=== PATIENT | female | born 1970 | race African-American/Black ===

== ENCOUNTER 2017-07-05 21:50 | Emergency (ER) | payer OTHER ==
--- NOTE | 2017-07-05 22:28 | RAD ---
FOUR VIEWS OF THE RIGHT KNEE 07/05/17 INDICATION: Chronic right knee pain. COMPARISON: None. FINDINGS: There is moderate degenerative arthrosis involving the right knee. There is mild joint capsular dist ention. IMPRESSION: Moderate degenerative arthrosis of the right knee. Mild joint capsular distention. POS: [facility]
[2017-07-05] MEDS ORDERED: Ketorolac Tromethamine 60 MG/2 ML VIAL ONE (23:58)
== END 2017-07-06 00:04 | disposition home or self-care (01) ==
LOC: ERS 21:50
DX: M17.11 Unilateral primary osteoarthritis, right knee (principal); E11.9 Type 2 diabetes mellitus without complications; I10 Essential (primary) hypertension; F31.9 Bipolar disorder, unspecified; F41.9 Anxiety disorder, unspecified; F20.9 Schizophrenia, unspecified; Z79.84 Long term (current) use of oral hypoglycemic drugs; Z79.899 Other long term (current) drug therapy
CPT/HCPCS: 96372; J1885

== ENCOUNTER 2017-11-04 22:32 | Emergency (ER) | payer OTHER ==
--- NOTE | 2017-11-05 00:05 | CT ---
NONCONTRAST CT HEAD: Date: 11-04-17 History: Syncope two hours ago. Patient had previous syncopal episode of dizziness and loss of vision . When patient awakened, the patient had a headache and was vomiting. Comparison: 11-03-11 FINDINGS: There is no evidence of a hemorrhage, acute infarction, mass effect, or midline shift. Ventricular sy stem is normal in size, shape, and position. There has been no interval change when compared to the p rior exam. IMPRESSION: No acute intracranial abnormalities demonstrated. POS: [facility]
--- NOTE | 2017-11-05 00:08 | CT ---
CT CERVICAL SPINE NONCONTRAST: Date: 11-04-17 History: Trauma. Patient with syncopal episode. When patient awoke, patient had headache and was vomi ting. Technique: Contiguous axial CT images are obtained through the cervical spine from the skull base to the T1-2 level. Sagittal and coronal reformatted images are provided. FINDINGS: There is a midline defect in the posterior arch of C1 likely developmental in origin. There is no kristopher dence of a fracture or subluxation involving the cervical spine. There is no significant bony encroac hment on the neural foramina at any level. There is posterior osteophyte formation present at the C5- 6 level resulting in mild effacement of the ventral subarachnoid space. Prevertebral soft tissues are within normal limits. There is calcification of the anterior and longitudinal ligament at the C4-5 and C5-6 levels. IMPRESSION: 1. No fracture or subluxation involving the cervical spine. 2. Mild degenerative change in the cervical spine. 3. Straightening of the normal cervical lordotic curvature which may be related to muscle spasm or po sitioning. POS: [facility]
[2017-11-05 00:13] LABS: #Eosinphils 0.1 thou/uL (0.0-0.7); #Monocytes 0.5 thou/uL (0.11-0.59); #Neutrophils 5.9 thou/uL (1.40-6.50); %Eosinophils 0.9 % (0.0-10.0); %Monocytes 5.7 % (0.0-10.0); %Neutrophils 69.3 % (42.0-75.0); Hemoglobin 11.5 g/dL (12.0-16.0); Mean Corpuscular HGB CONC 31.6 g/dL (32.0-36.0); Mean Corpuscular Volume 91.9 fl (81.0-99.0); Platelet Count 389 thou/uL (130-400); RBC Distribution Width 13.6 % (11.5-14.5); Red Blood Cell (RBC) Count 3.96 mill/uL (4.20-5.40); White Blood Cell (WBC) Count 8.4 thou/uL (4.8-10.8)
[2017-11-05] MEDS ORDERED: Metoclopramide HCl 10 MG/2 ML VIAL ONE (00:20)
[2017-11-05] MEDS ORDERED: diphenhydrAMINE 50 MG/ML VIAL ONE (00:20)
[2017-11-05 00:28] LABS: ALT (SGPT) 11 U/L (8-55); AST (SGOT) 17 U/L (5-34); Albumin 3.8 g/dL (3.5-5.0); Alkaline Phosphatase 92 U/L (40-150); Anion Gap 12 mmol/L (10-20); BUN (Urea Nitrogen) 13 mg/dL (7.0-18.7); Bilirubin, Total 0.3 mg/dL (0.2-1.2); Calc. Creatinine Clearance 0 mL/min (70-130); Calcium 9.5 mg/dL (7.8-10.44); Carbon Dioxide 26 mmol/L (22-29); Chloride 105 mmol/L (98-107); Estimated GFR-MDRD 77; Globulin 3.5 g/dL (2.4-3.5); Glucose 125 mg/dL (70-105); Potassium 4.1 mmol/L (3.5-5.1); Protein, Total 7.3 g/dL (6.0-8.3); Sodium 139 mmol/L (136-145)
[2017-11-05] MEDS ORDERED: Acetaminophen 500 MG TAB ONE (01:01)
--- NOTE | 2017-11-10 19:03 | EKG ---
Test Reason : HTN Blood Pressure : / mmHG Vent. Rate : 078 BPM Atrial Rate : 078 BPM P-R Int : 144 ms QRS Dur : 078 ms QT Int : 406 ms P-R-T Axes : 042 000 021 degrees QTc Int : 462 ms Normal sinus rhythm with sinus arrhythmia Minimal voltage criteria for LVH, may be normal variant Septal infarct , age undetermined Abnormal ECG Confirmed by LESLEY MAHER, NANCY ([id number]), news editor DWAYNE PATEL ([id number]) on 11/10/2017 7:02:19 PM Referred By: Confirmed By:NANCY SUTTON MD
== END 2017-11-05 01:25 | disposition home or self-care (01) ==
LOC: ERS 22:32
DX: R55 Syncope and collapse (principal); R51 Headache; E11.9 Type 2 diabetes mellitus without complications; J45.909 Unspecified asthma, uncomplicated; F41.9 Anxiety disorder, unspecified; F31.9 Bipolar disorder, unspecified; F20.9 Schizophrenia, unspecified; Z79.84 Long term (current) use of oral hypoglycemic drugs; Z79.899 Other long term (current) drug therapy
CPT/HCPCS: 36415; 70450; 72125; 80053; 85025; 85652; 86140; 93005; J1200; J2765

== ENCOUNTER 2018-08-25 07:22 | Emergency (ER) | payer OTHER ==
[2018-08-25] MEDS ORDERED: Metoclopramide HCl 10 MG/2 ML VIAL ONE (07:42)
[2018-08-25] MEDS ORDERED: diphenhydrAMINE 50 MG/ML VIAL ONE (07:42)
[2018-08-25 08:04] LABS: #Basophils 0.1 thou/uL (0.0-0.2); #Eosinphils 0.1 thou/uL (0.0-0.7); #Lymphocytes 3.5 thou/uL (1.20-3.40); #Monocytes 0.6 thou/uL (0.11-0.59); #Neutrophils 3.6 thou/uL (1.40-6.50); %Basophils 0.8 % (0.0-1.0); %Lymphocytes 44.5 % (21.0-51.0); %Neutrophils 46.7 % (42.0-75.0); Mean Corpuscular HGB CONC 32.4 g/dL (32.0-36.0); Mean Corpuscular Hemoglobin 28.9 pg (27.0-31.0); Mean Corpuscular Volume 89.3 fL (78.0-98.0); Mean Platelet Volume 7.3 fL (7.4-10.4); Platelet Count 381 thou/uL (130-400); RBC Distribution Width 13.5 % (11.5-14.5); Red Blood Cell (RBC) Count 4.17 mill/uL (4.20-5.40); White Blood Cell (WBC) Count 7.8 thou/uL (4.8-10.8)
[2018-08-25 08:27] LABS: ALT (SGPT) 9 U/L (8-55); AST (SGOT) 14 U/L (5-34); Alkaline Phosphatase 91 U/L (40-150); Anion Gap 12 mmol/L (10-20); BUN (Urea Nitrogen) 12 mg/dL (7.0-18.7); Bilirubin, Total 0.6 mg/dL (0.2-1.2); Calc. Creatinine Clearance 0 mL/min (70-130); Calcium 9.9 mg/dL (7.8-10.44); Carbon Dioxide 27 mmol/L (22-29); Chloride 104 mmol/L (98-107); Estimated GFR-MDRD 82; Globulin 3.9 g/dL (2.4-3.5); Glucose 132 mg/dL (70-105); Lipase 23 U/L (8-78); Potassium 3.9 mmol/L (3.5-5.1); Protein, Total 7.9 g/dL (6.0-8.3); Sodium 139 mmol/L (136-145)
--- NOTE | 2018-08-25 08:50 | CT ---
CT BRAIN WITHOUT CONTRAST: Date: 08/25/18 HISTORY: Headache. FINDINGS: Comparison made with exam of 11/04/17. No evidence of infarct, hemorrhage, midline shift, or abnormal extra-axial fluid collections are seen . The ventricular size is normal and the basilar cisterns are patent. The bony calvarium is intact. T he visualized paranasal sinuses and mastoid air cells are well aerated. IMPRESSION: No CT evidence of acute intracranial process. POS: [facility]
[2018-08-25] MEDS ORDERED: Meclizine HCl 25 MG TAB ONE (09:07)
== END 2018-08-25 10:26 | disposition home or self-care (01) ==
LOC: ERS 07:22
DX: R51 Headache (principal); I10 Essential (primary) hypertension; E11.9 Type 2 diabetes mellitus without complications; J45.909 Unspecified asthma, uncomplicated; F41.9 Anxiety disorder, unspecified; F31.9 Bipolar disorder, unspecified; F20.9 Schizophrenia, unspecified; Z79.84 Long term (current) use of oral hypoglycemic drugs; Z79.899 Other long term (current) drug therapy
CPT/HCPCS: 36415; 70450; 80053; 83690; 84484; 85025; 93005; 96365; 96366; J1200; J2765

== ENCOUNTER 2018-09-21 20:28 | Emergency (ER) | payer OTHER ==
--- NOTE | 2018-09-21 21:18 | RAD ---
AP PELVIS RADIOGRAPH 09/21/18 HISTORY: Trauma, fall. FINDINGS: There is no evidence of a fracture or dislocation. No other osseous abnormality is present. IMPRESSION: No acute osseous abnormality is identified. POS: [facility]
--- NOTE | 2018-09-21 21:21 | RAD ---
THREE VIEWS LUMBAR SPINE 09/21/18 HISTORY: Trauma, fall. FINDINGS: There are five nonribbearing lumbar type vertebral bodies. The vertebral body heights are within normal limits. There is retrolisthesis of L5 on S1. Scattered o steophytes are seen in the lower lumbar spine. There are also osteophytes seen in the lower thoracic spine. No fracture is seen. Surgical clips overlie the right upper quadrant. Phleboliths overlie the pelvis. There is a calcifica tion is seen overlying the right lower quadrant which is difficult to further localize. However, this does not overlie the course of the ureter. IMPRESSION: 1. Degenerative changes in the lumbar spine without evidence of a fracture. 2. Retrolisthesis of L5 on S1. POS: [facility]
[2018-09-21] MEDS ORDERED: Ketorolac Tromethamine 60 MG/2 ML VIAL ONE (21:31)
== END 2018-09-21 22:15 | disposition home or self-care (01) ==
LOC: ERS 20:28
DX: M54.5 Low back pain (principal); F31.9 Bipolar disorder, unspecified; F20.9 Schizophrenia, unspecified; E11.9 Type 2 diabetes mellitus without complications; I10 Essential (primary) hypertension; F41.9 Anxiety disorder, unspecified; J45.909 Unspecified asthma, uncomplicated; Z79.899 Other long term (current) drug therapy; Z79.84 Long term (current) use of oral hypoglycemic drugs; W01.0XXA Fall on same level from slipping, tripping and stumbling without subsequent striking against object, initial encounter
CPT/HCPCS: 72100; 72170; 96372; J1885

== ENCOUNTER 2018-09-22 13:31 | Emergency (ER) | payer OTHER ==
[2018-09-22 14:17] LABS: #Basophils 0.1 thou/uL (0.0-0.2); #Eosinphils 0.1 thou/uL (0.0-0.7); #Lymphocytes 4.1 thou/uL (1.20-3.40); #Monocytes 0.8 thou/uL (0.11-0.59); #Neutrophils 6.6 thou/uL (1.40-6.50); %Basophils 0.9 % (0.0-1.0); %Eosinophils 0.7 % (0.0-10.0); %Lymphocytes 35.5 % (21.0-51.0); %Monocytes 6.4 % (0.0-10.0); %Neutrophils 56.5 % (42.0-75.0); Hemoglobin 13.1 g/dL (12.0-16.0); Mean Corpuscular HGB CONC 31.8 g/dL (32.0-36.0); Mean Corpuscular Hemoglobin 28.5 pg (27.0-31.0); Mean Corpuscular Volume 89.6 fL (78.0-98.0); Mean Platelet Volume 7.4 fL (7.4-10.4); Platelet Count 444 thou/uL (130-400); RBC Distribution Width 13.7 % (11.5-14.5); Red Blood Cell (RBC) Count 4.59 mill/uL (4.20-5.40); White Blood Cell (WBC) Count 11.6 thou/uL (4.8-10.8)
[2018-09-22 14:38] LABS: ALT (SGPT) 14 U/L (8-55); AST (SGOT) 18 U/L (5-34); Albumin 4.4 g/dL (3.5-5.0); Alkaline Phosphatase 96 U/L (40-150); Anion Gap 19 mmol/L (10-20); BUN (Urea Nitrogen) 20 mg/dL (7.0-18.7); Bilirubin, Total 0.5 mg/dL (0.2-1.2); Calc. Creatinine Clearance 0 mL/min (70-130); Carbon Dioxide 18 mmol/L (22-29); Chloride 105 mmol/L (98-107); Estimated GFR-MDRD 67; Glucose 158 mg/dL (70-105); Potassium 3.5 mmol/L (3.5-5.1); Protein, Total 8.4 g/dL (6.0-8.3); Sodium 138 mmol/L (136-145)
[2018-09-22] MEDS ORDERED: Ondansetron ODT 4 MG TAB ONE (14:38)
--- NOTE | 2018-09-22 15:04 | RAD ---
PORTABLE CHEST: Date: 09/22/18 PROVIDED CLINICAL HISTORY: Cough. FINDINGS: Comparison with 08/23/15. Evaluation is limited by patient body habitus. The cardiac silhouette appears enlarged. The lungs are hypoinflated, with accentuation of pulmonary bronchovascular markings. No lobar consolidation, large effusion, or pneumothorax evident. IMPRESSION: Limited exam. POS: [facility]
--- NOTE | 2018-09-22 15:11 | CT ---
CT BRAIN: Date: 09/22/18 PROVIDED CLINICAL HISTORY: Headache. FINDINGS: Comparison with 08/25/18. The ventricular system appears normal in size and morphology. There is no evidence for intracranial h emorrhage or mass effect. The extracranial soft tissues and osseous structures demonstrate an unremar kable CT appearance. IMPRESSION: No evidence for intracranial hemorrhage or mass effect. POS: [facility]
== END 2018-09-22 15:49 | disposition home or self-care (01) ==
LOC: ERS 13:31
DX: I10 Essential (primary) hypertension (principal); E11.9 Type 2 diabetes mellitus without complications; J45.909 Unspecified asthma, uncomplicated; F41.9 Anxiety disorder, unspecified; F31.9 Bipolar disorder, unspecified; F20.9 Schizophrenia, unspecified; Z79.899 Other long term (current) drug therapy; Z79.84 Long term (current) use of oral hypoglycemic drugs
CPT/HCPCS: 36415; 70450; 71045; 80053; 84484; 85025; 93005; Q0162

== ENCOUNTER 2019-02-06 06:03 | Observation (INO) | payer OTHER ==
[2019-02-06 06:44] LABS: #Basophils 0.1 thou/uL (0.0-0.2); #Eosinphils 0.2 thou/uL (0.0-0.7); #Lymphocytes 3.6 thou/uL (1.20-3.40); #Monocytes 0.6 thou/uL (0.11-0.59); #Neutrophils 3.1 thou/uL (1.40-6.50); %Basophils 1.1 % (0.0-1.0); %Eosinophils 2.8 % (0.0-10.0); %Lymphocytes 47.8 % (21.0-51.0); %Monocytes 7.3 % (0.0-10.0); Hemoglobin 12.1 g/dL (12.0-16.0); Mean Corpuscular HGB CONC 32.9 g/dL (32.0-36.0); Mean Corpuscular Hemoglobin 29.7 pg (27.0-31.0); Mean Corpuscular Volume 90.3 fL (78.0-98.0); Mean Platelet Volume 7.3 fL (7.4-10.4); Platelet Count 377 thou/uL (130-400); RBC Distribution Width 13.2 % (11.5-14.5); Red Blood Cell (RBC) Count 4.06 mill/uL (4.20-5.40); White Blood Cell (WBC) Count 7.5 thou/uL (4.8-10.8)
[2019-02-06 07:06] LABS: ALT (SGPT) 15 U/L (8-55); AST (SGOT) 13 U/L (5-34); Albumin 4.1 g/dL (3.5-5.0); Alkaline Phosphatase 115 U/L (40-150); Anion Gap 15 mmol/L (10-20); BUN (Urea Nitrogen) 13 mg/dL (7.0-18.7); Bilirubin, Total 0.4 mg/dL (0.2-1.2); Calc. Creatinine Clearance 0 mL/min (70-130); Calcium 9.9 mg/dL (7.8-10.44); Carbon Dioxide 24 mmol/L (22-29); Chloride 102 mmol/L (98-107); Estimated GFR-MDRD 66; Globulin 3.7 g/dL (2.4-3.5); Glucose 154 mg/dL (70-105); Lipase 43 U/L (8-78); Potassium 3.9 mmol/L (3.5-5.1); Protein, Total 7.8 g/dL (6.0-8.3); Sodium 137 mmol/L (136-145)
[2019-02-06] MEDS ORDERED: Nitroglycerin 2% Ointment 1 INCH/1 GM Packet ONE (07:29)
[2019-02-06] MEDS ORDERED: Aspirin Chewable 81 MG TAB ONE (07:30)
--- NOTE | 2019-02-06 07:50 | RAD ---
Exam: Chest one view HISTORY:Chest pain. Comparison: 09/22/2018 FINDINGS: Cardiac silhouette: Normal Pulmonary vessels: Normal Costophrenic angles: Clear LUNGS: No masses or consolidation. Pneumothorax: None Osseous abnormalities: None IMPRESSION: No acute cardiopulmonary process.
[2019-02-06 10:04] LABS: Troponin I 0.011 ng/mL (< 0.028)
--- NOTE | 2019-02-06 10:41 | PDOC.FPRHP ---
- Allergies/Adverse Reactions Allergies Allergy/AdvReac Type Severity Reaction Status Date / Time No Known Drug Allergies Allergy Verified 04/23/13 18:49 - Home Medications Medication Instructions Recorded Confirmed Type No Known 04/23/13 04/23/13 History - History PMHx: PSHx: FHx: Social: - Vital signs BP: 134/88, Pulse: 80, Resp: 18 (Non-Labored), Temp: 97.8 (Oral), Pain: 7, O2 sat: 94 on Room Air, Time: 02/06/2019 06:07. weight 129kg FMR H&P: Results - Labs Result Diagrams: 02/06/19 06:32 02/06/19 06:32 Lab results: WBC 7.5 thou/uL (4.8-10.8) 02/06/19 06:32 Hgb 12.1 g/dL (12.0-16.0) 02/06/19 06:32 Hct 36.7 % (36.0-47.0) 02/06/19 06:32 MCV 90.3 fL (78.0-98.0) 02/06/19 06:32 Plt Count 377 thou/uL (130-400) 02/06/19 06:32 Neutrophils % 41.0 % (42.0-75.0) L 02/06/19 06:32 Sodium 137 mmol/L (136-145) 02/06/19 06:32 Potassium 3.9 mmol/L (3.5-5.1) 02/06/19 06:32 Chloride 102 mmol/L (98-107) 02/06/19 06:32 Carbon Dioxide 24 mmol/L (22-29) 02/06/19 06:32 BUN 13 mg/dL (7.0-18.7) 02/06/19 06:32 Creatinine 1.07 mg/dL (0.6-1.1) 02/06/19 06:32 Glucose 154 mg/dL (70-105) H 02/06/19 06:32 Calcium 9.9 mg/dL (7.8-10.44) 02/06/19 06:32 Total Bilirubin 0.4 mg/dL (0.2-1.2) 02/06/19 06:32 AST 13 U/L (5-34) 02/06/19 06:32 ALT 15 U/L (8-55) 02/06/19 06:32 Alkaline Phosphatase 115 U/L (40-150) 02/06/19 06:32 Serum Total Protein 7.8 g/dL (6.0-8.3) 02/06/19 06:32 Albumin 4.1 g/dL (3.5-5.0) 02/06/19 06:32 Lipase 43 U/L (8-78) 02/06/19 06:32 FMR H&P: Upper Level - Pertinent history 49 yo AAF with PMHx HTN, T2DM and HLD who presents with cc of L breast pain since last night. She describes it as a sharp pain in the middle of her breast. No radiation, diaphoresis, n/v. She states it happened at 1 am then recurred at 5 am. She describes it as sharp and worse with coughing. She reports she has had a nonproductive cough for a few weeks now. Denies fever, chills, sputum production. The pain is improved with pressing on her breast. Denies any skin changes. Had normal mammogram 2 years ago per her recollection. - Pertinent findings VSS CXR negative EKG NSR Gen: awake, alert, oriented HEENT: NCAT, MMM CV: RRR, no murmur RESP: CTAB ABD: soft, NTND EXT: no edema, pulses 1+ throughout BREAST: L breast without skin changes, TTP, palpable masses, pain slightly improved with pressure - Plan Date/Time: 02/06/19 1040 49 yo AAF with atypical chest pain (predominately breast pain) 1. Atypical chest pain - HEART score 3 - Trops neg x2 - Will await final trop and recommend OP stress test if negative 2. DM - Continue home meds and f/u with Dr. Walsh OP 3. HTN - WNL at this time - Continue home meds Please see Dr. Murphy's note for remainder of A/P I, Jennifer Ayala MD, PGY-3, have evaluated this patient and agree with findings/ plan as outlined by international project manager resident. Pertinent changes/additions are listed here.
[2019-02-06 13:19] VITALS: BP 114/62; TEMP 97.9
[2019-02-06 13:19] LABS: Troponin I Less than 0.010 ng/mL (< 0.028)
[2019-02-06 13:21] VITALS: BMI 42.5
[2019-02-06] MEDS ORDERED: Acetaminophen 325 MG TAB PO PRN (13:21)
[2019-02-06] MEDS ORDERED: HumaLOG 300 UNITS/3 ML VIAL SC PRN (13:21)
[2019-02-06] MEDS ORDERED: Dextrose 5% in Water 1,000 ML IV PRN (13:21)
[2019-02-06] MEDS ORDERED: Dextrose 50% Abboject 50 ML SYRINGE SLOW IVP PRN (13:21)
[2019-02-06] MEDS ORDERED: Ondansetron PF 4 MG/2 ML Vial IVP PRN (13:24)
[2019-02-06] MEDS ORDERED: Ondansetron ODT 4 MG TAB PO PRN (13:24)
[2019-02-06 13:53] LABS: Magnesium 2.7 mg/dL (1.6-2.6); Phosphorus 4.2 mg/dL (2.3-4.7)
--- NOTE | 2019-02-07 08:18 | SS ---
DATE OF ADMISSION: 02/06/2019 DATE OF DISCHARGE: 02/06/2019 CHIEF COMPLAINT: Chest pain. HISTORY OF PRESENT ILLNESS: This is a 49-year-old female with history of diabetes, obesity, and hypertension, who presented to the emergency department for evaluation of chest pain. The patient reports that her pain woke her up in the middle of the night. It is located on the left side of her chest, within her breast just deep of the skin. The pain is of sharp quality with no radiation and is at times palliated by palpation. The patient states that she has had this breast pain in past. Her last MRI was 2 years ago and she has never had an abnormal MRI. Family history was significant for breast cancer. The patient had no related symptoms. No shortness of breath. No diaphoresis. PAST MEDICAL HISTORY: Diabetes, hypertension, obesity. PAST SURGICAL HISTORY: Tubal ligation, cholecystectomy. FAMILY HISTORY: Breast cancer, brain cancer. SOCIAL HISTORY: Occasional social alcohol. Denies tobacco. Denies drugs. ADMISSION MEDICATIONS: 1. Ventolin HFA two puffs every 4 hours as needed for shortness of breath. 2. Amitriptyline one tablet p.o. each night, 25 mg. 3. Metformin 500 mg one tablet p.o. b.i.d. 4. Flovent HFA two puffs b.i.d. 5. Vitamin D 50,000 units one tablet q.weekly. 6. Losartan 50 mg one tablet p.o. daily. 7. Hydrochlorothiazide 12.5 mg one capsule p.o. daily. 8. Ipratropium/albuterol nebulized, one nebule q4-6 hours p.r.n. for wheezing and shortness of breath. 9. Gabapentin 300 mg one capsule p.o. b.i.d. REVIEW OF SYSTEMS: GENERAL: No fevers. No chills. HEENT: No visual disturbance. No eye pain. No ear pain. PULMONARY: No shortness of breath. No cough. CARDIOLOGY: No edema. No palpitations. Chest pain per HPI. GASTROINTESTINAL : No nausea. No vomiting. No abdominal pain. : No pain on urination. No hematuria. NEUROLOGIC: No syncope. No seizures. SKIN: No rashes. No lesions. PSYCH: No anxiety. No depression. PHYSICAL EXAMINATION: GENERAL: No acute distress. Obese. HEENT: EOMI. No conjunctivitis. NECK: Trachea midline. CARDIAC: Regular rate and rhythm. No murmurs. PULMONARY: Clear to auscultation bilaterally. No wheezing. No distress. GI: No tenderness to palpation. Nondistended. SKIN: No rashes. No lesions. NEUROLOGIC: Alert and oriented x3. No focal deficits. BREAST: No erythema. No edema. No peau d'orange. No masses palpated. Pain was relieved with palpation on exam. HOSPITAL COURSE: The patient was brought into hospital for observation. Considering the patient's risk factors of diabetes, obesity, and hypertension, the patient was monitored for ACS rule out. Troponins were negative x3, with consideration of the atypical nature of her pain, it was deemed likely that the pain was secondary to musculoskeletal reasons versus soft tissue pain related to breasts, so the patient was deemed stable for discharge with plans for outpatient stress test and mammography. This was discussed with the patient who verbalized understanding and intentions for following up in clinic in the next 1 to 2 days for said referral and expressed her intent to get a mammogram. DISCHARGE DIAGNOSIS: Atypical chest pain, likely secondary to musculoskeletal reasons. DISCHARGE MEDICATIONS: Same as home medications. DISPOSITION: Stable. DISCHARGE INSTRUCTIONS: 1. Location: Home. 2. Diet: Healthy heart, consisting carb, diabetic diet. 3. Activity: No restrictions. FOLLOWUP: Follow up in clinic in 1 to 2 days. Recommend outpatient stress test and referral for mammography. This patient was also seen and evaluated by Dr. Jennifer Ayala and Dr. Jose Luis Winn as attending. Job ID: [id number] MTDD
[2019-02-07] MEDS ORDERED: Enoxaparin Sodium 40 MG/0.4 ML SYRINGE SC SCH (09:00)
--- NOTE | 2019-02-08 17:04 | EKG ---
Test Reason : CP Blood Pressure : / mmHG Vent. Rate : 061 BPM Atrial Rate : 061 BPM P-R Int : 128 ms QRS Dur : 080 ms QT Int : 430 ms P-R-T Axes : 027 -07 015 degrees QTc Int : 432 ms Normal sinus rhythm Moderate voltage criteria for LVH, may be normal variant Borderline ECG Confirmed by GEORGI SIDDIQUI DO ([id number]), pictures editor TIFFANY MONACO ([id number]) on 02/08/2019 5:04:04 PM Referred By: Confirmed By:GEORGI SIDDIQUI DO
== END 2019-02-06 15:46 | disposition home or self-care (01) ==
LOC: ERS 06:03 → ERHOLD 07:49 → 2SW 13:08
PROVIDERS: ADMIT Family Medicine; ATTEND Family Medicine
DX: R07.89 Other chest pain (principal); E11.9 Type 2 diabetes mellitus without complications; I10 Essential (primary) hypertension; E66.9 Obesity, unspecified; Z68.41 Body mass index [BMI] 40.0-44.9, adult; Z79.84 Long term (current) use of oral hypoglycemic drugs; Z79.899 Other long term (current) drug therapy
CPT/HCPCS: 36415; 36416; 71045; 80053; 83690; 83735; 84100; 84443; 84484; 85025; 93005; G0378

== ENCOUNTER 2019-07-05 23:12 | Emergency (ER) | payer OTHER | END 2019-07-05 23:35 | disposition home or self-care (01) | LOC: ERS 23:12 | DX: M54.6 Pain in thoracic spine (principal); J45.909 Unspecified asthma, uncomplicated; I10 Essential (primary) hypertension; R73.03 Prediabetes; F41.9 Anxiety disorder, unspecified; F31.9 Bipolar disorder, unspecified; F20.9 Schizophrenia, unspecified; Z79.899 Other long term (current) drug therapy; Z79.84 Long term (current) use of oral hypoglycemic drugs | CPT/HCPCS: 99283 ==

== ENCOUNTER 2019-10-04 09:37 | Emergency (ER) | payer OTHER ==
--- NOTE | 2019-10-04 10:34 | RAD ---
RADIOGRAPH CHEST 2 VIEWS: DATE: 10/04/2019 HISTORY: 49-year-old female with cough FINDINGS: There is no airspace density, pulmonary edema, pleural effusion, pneumothorax, or cardiomegaly. IMPRESSION: No acute cardiopulmonary findings.
== END 2019-10-04 10:53 | disposition home or self-care (01) ==
LOC: ERS 09:37
DX: J45.901 Unspecified asthma with (acute) exacerbation (principal); J20.9 Acute bronchitis, unspecified; I10 Essential (primary) hypertension; F41.9 Anxiety disorder, unspecified; F31.9 Bipolar disorder, unspecified; F20.9 Schizophrenia, unspecified
CPT/HCPCS: 71046

== ENCOUNTER 2019-10-21 01:49 | Emergency (ER) | payer OTHER ==
[2019-10-21] MEDS ORDERED: Mag-Al 1200 mg/1200 mg/30 ML UDCUP ONE (02:26)
[2019-10-21] MEDS ORDERED: Lidocaine Viscous Sol 2% 15 ml UD Cup ONE (02:26)
--- NOTE | 2019-10-21 09:13 | RAD ---
TWO VIEWS NECK SOFT TISSUES: HISTORY: Choked on a rib 2 days ago. The patient still feels like something is stuck in her throat. FINDINGS: Two views of the neck soft tissues show no evidence of prevertebral soft tissue swelling. Calcificat ions are seen in the prevertebral region, but these may represent thyroid cartilage calcifications. Epiglottis demonstrates normal thickness. Moderate degenerative changes are seen in the cervical spi ne. IMPRESSION: Calcifications in the prevertebral soft tissues may represent thyroid calcifications. Retained bone within the airway of esophagus is also a possibility. POS: [facility]
== END 2019-10-21 03:07 | disposition home or self-care (01) ==
LOC: ERS 01:49
DX: K20.9 Esophagitis, unspecified (principal); R73.03 Prediabetes; I10 Essential (primary) hypertension; J45.909 Unspecified asthma, uncomplicated; F41.9 Anxiety disorder, unspecified; F31.9 Bipolar disorder, unspecified; Z79.899 Other long term (current) drug therapy
CPT/HCPCS: 70360

== ENCOUNTER 2020-07-06 23:12 | Emergency (ER) | payer OTHER ==
[2020-07-06 23:41] LABS: #Basophils 0.1 thou/uL (0.0-0.2); #Eosinphils 0.1 thou/uL (0.0-0.7); #Lymphocytes 4.5 thou/uL (1.20-3.40); #Monocytes 0.8 thou/uL (0.11-0.59); #Neutrophils 5.2 thou/uL (1.40-6.50); %Basophils 0.6 % (0.0-1.0); %Eosinophils 0.9 % (0.0-10.0); %Lymphocytes 42.5 % (21.0-51.0); %Monocytes 7.9 % (0.0-10.0); %Neutrophils 48.2 % (42.0-75.0); Hemoglobin 13.6 g/dL (12.0-16.0); Mean Corpuscular HGB CONC 33.3 g/dL (32.0-36.0); Mean Corpuscular Hemoglobin 29.9 pg (27.0-31.0); Mean Corpuscular Volume 89.9 fL (78.0-98.0); Mean Platelet Volume 7.1 fL (7.4-10.4); Platelet Count 449 thou/uL (130-400); RBC Distribution Width 13.9 % (11.5-14.5); Red Blood Cell (RBC) Count 4.55 mill/uL (4.20-5.40); White Blood Cell (WBC) Count 10.7 thou/uL (4.8-10.8)
[2020-07-06] MEDS ORDERED: Mag-Al 1200 mg/1200 mg/30 ML UDCUP ONE ×2 (23:44→23:45)
[2020-07-06] MEDS ORDERED: Lidocaine Viscous Sol 2% 15 ml UD Cup ONE ×2 (23:44→23:45)
[2020-07-06] MEDS ORDERED: Aspirin Chewable 81 MG TAB ONE (23:45)
[2020-07-07 00:04] LABS: ALT (SGPT) 12 U/L (8-55); AST (SGOT) 15 U/L (5-34); Albumin 4.3 g/dL (3.5-5.0); Alkaline Phosphatase 141 U/L (40-110); Anion Gap 16 mmol/L (10-20); BUN (Urea Nitrogen) 17 mg/dL (7.0-18.7); Bilirubin, Total 0.4 mg/dL (0.2-1.2); CK (CPK) 133 U/L (29-168); Calc. Creatinine Clearance 0 mL/min (70-130); Calcium 10.4 mg/dL (7.8-10.44); Carbon Dioxide 27 mmol/L (22-29); Chloride 102 mmol/L (98-107); Estimated GFR-MDRD 61; Globulin 4.3 g/dL (2.4-3.5); Glucose 112 mg/dL (70-105); Lipase 77 U/L (8-78); Protein, Total 8.6 g/dL (6.0-8.3); Sodium 141 mmol/L (136-145)
--- NOTE | 2020-07-07 00:05 | RAD ---
EXAM: CHEST ONE VIEW HISTORY: Chest pain. COMPARISON: 02/06/2019 FINDINGS: Cardiac silhouette is magnified by projection but stable in size. The pulmonary vasculature is within normal limits. The lungs are clear. The osseous structures are intact. IMPRESSION: No acute cardiopulmonary process.
== END 2020-07-07 00:31 | disposition home or self-care (01) ==
LOC: ERS 23:12
DX: R07.89 Other chest pain (principal); I10 Essential (primary) hypertension; J45.909 Unspecified asthma, uncomplicated; F31.9 Bipolar disorder, unspecified; F41.9 Anxiety disorder, unspecified; F20.9 Schizophrenia, unspecified; E66.9 Obesity, unspecified; E11.9 Type 2 diabetes mellitus without complications; Z79.899 Other long term (current) drug therapy; Z79.84 Long term (current) use of oral hypoglycemic drugs
CPT/HCPCS: 71045; 80053; 82550; 83690; 84484; 85025; 93005

== ENCOUNTER 2020-10-22 07:27 | Emergency (ER) | payer OTHER | END 2020-10-22 08:10 | disposition home or self-care (01) | LOC: ERS 07:27 | DX: K04.7 Periapical abscess without sinus (principal); R73.03 Prediabetes; I10 Essential (primary) hypertension; J45.909 Unspecified asthma, uncomplicated; Z79.84 Long term (current) use of oral hypoglycemic drugs; Z79.899 Other long term (current) drug therapy | CPT/HCPCS: 99283 ==

== ENCOUNTER 2021-02-16 11:06 | Emergency (ER) | payer OTHER ==
[2021-02-16] MEDS ORDERED: Ibuprofen 800 MG TAB ONE (11:44)
== END 2021-02-16 13:26 | disposition home or self-care (01) ==
LOC: ERS 11:06
DX: S33.5XXA Sprain of ligaments of lumbar spine, initial encounter (principal); S80.01XA Contusion of right knee, initial encounter; I10 Essential (primary) hypertension; J45.909 Unspecified asthma, uncomplicated; R73.03 Prediabetes; Z79.899 Other long term (current) drug therapy; Z79.84 Long term (current) use of oral hypoglycemic drugs; W01.0XXA Fall on same level from slipping, tripping and stumbling without subsequent striking against object, initial encounter
CPT/HCPCS: 72100; 72125

== ENCOUNTER 2021-04-28 08:35 | Outpatient (CLI) | payer OTHER | END 2021-04-28 08:36 | disposition home or self-care (01) | LOC: BICMAMMO 08:35 | PROVIDERS: ATTEND Student in an Organized Health Care Education/Training Program | DX: Z12.31 Encounter for screening mammogram for malignant neoplasm of breast (principal); Z80.3 Family history of malignant neoplasm of breast | CPT/HCPCS: 77067 ==

== ENCOUNTER 2021-05-27 20:15 | Emergency (ER) | payer OTHER ==
[2021-05-28] MEDS ORDERED: Meclizine HCl 25 MG TAB ONE (00:01)
[2021-05-28 00:17] LABS: #Basophils 0.1 thou/uL (0.0-0.2); #Eosinphils 0.2 thou/uL (0.0-0.7); #Lymphocytes 4.2 thou/uL (1.20-3.40); #Neutrophils 6.4 thou/uL (1.40-6.50); %Basophils 0.9 % (0.0-1.0); %Eosinophils 1.7 % (0.0-10.0); %Lymphocytes 35.3 % (21.0-51.0); %Monocytes 8.1 % (0.0-10.0); %Neutrophils 54.1 % (42.0-75.0); Hemoglobin 13.5 g/dL (12.0-16.0); Mean Corpuscular HGB CONC 32.7 g/dL (32.0-36.0); Mean Corpuscular Hemoglobin 30.5 pg (27.0-31.0); Mean Corpuscular Volume 93.3 fL (78.0-98.0); Mean Platelet Volume 7.4 fL (7.4-10.4); Platelet Count 415 thou/uL (130-400); RBC Distribution Width 13.3 % (11.5-14.5); Red Blood Cell (RBC) Count 4.41 mill/uL (4.20-5.40); White Blood Cell (WBC) Count 11.9 thou/uL (4.8-10.8)
[2021-05-28 00:37] LABS: ALT (SGPT) 12 U/L (8-55); AST (SGOT) 15 U/L (5-34); Albumin 3.9 g/dL (3.5-5.0); Alkaline Phosphatase 116 U/L (40-110); Anion Gap 12 mmol/L (10-20); BUN (Urea Nitrogen) 14 mg/dL (7.0-18.7); Bilirubin, Total 0.4 mg/dL (0.2-1.2); Calc. Creatinine Clearance 0 mL/min (70-130); Carbon Dioxide 27 mmol/L (22-29); Chloride 106 mmol/L (98-107); Globulin 4.1 g/dL (2.4-3.5); Potassium 3.8 mmol/L (3.5-5.1); Sodium 141 mmol/L (136-145)
[2021-05-28 00:54] LABS: Glucose 120 mg/dL (70-105)
== END 2021-05-28 01:38 | disposition home or self-care (01) ==
LOC: ERS 20:15
DX: R55 Syncope and collapse (principal); R42 Dizziness and giddiness; I10 Essential (primary) hypertension; J45.909 Unspecified asthma, uncomplicated; R73.03 Prediabetes; Z79.84 Long term (current) use of oral hypoglycemic drugs; Z79.899 Other long term (current) drug therapy
CPT/HCPCS: 36415; 71045; 80053; 85025; 93005

== ENCOUNTER 2022-05-20 12:19 | Emergency (ER) | payer OTHER ==
[2022-05-20] MEDS ORDERED: Ondansetron ODT 4 MG TAB ONE (12:43)
== END 2022-05-20 14:25 | disposition home or self-care (01) ==
LOC: ERS 12:19
DX: J18.9 Pneumonia, unspecified organism (principal); E11.9 Type 2 diabetes mellitus without complications; I10 Essential (primary) hypertension; E78.5 Hyperlipidemia, unspecified; Z79.899 Other long term (current) drug therapy; Z79.84 Long term (current) use of oral hypoglycemic drugs
CPT/HCPCS: 71045; Q0162

== ENCOUNTER 2022-10-25 08:30 | Outpatient (CLI) | payer OTHER | END 2022-10-25 08:31 | disposition home or self-care (01) | LOC: BICRAD 08:30 | PROVIDERS: ATTEND Student in an Organized Health Care Education/Training Program | DX: Z12.31 Encounter for screening mammogram for malignant neoplasm of breast (principal); S89.92XA Unspecified injury of left lower leg, initial encounter; M17.12 Unilateral primary osteoarthritis, left knee ==

== ENCOUNTER 2022-11-03 21:38 | Emergency (ER) | payer OTHER ==
[2022-11-03 22:20] LABS: #Basophils 0.1 thou/uL (0.0-0.2); #Eosinphils 0.2 thou/uL (0.0-0.7); #Lymphocytes 3.3 thou/uL (1.20-3.40); #Monocytes 0.4 thou/uL (0.11-0.59); #Neutrophils 3.9 thou/uL (1.40-6.50); %Basophils 0.8 % (0.0-1.0); %Eosinophils 2.1 % (0.0-10.0); %Lymphocytes 41.8 % (21.0-51.0); %Monocytes 5.4 % (0.0-10.0); %Neutrophils 49.9 % (42.0-75.0); Hemoglobin 12.6 g/dL (12.0-16.0); Mean Corpuscular HGB CONC 31.8 g/dL (32.0-36.0); Mean Corpuscular Hemoglobin 30.3 pg (27.0-31.0); Mean Corpuscular Volume 95.2 fl (78.0-98.0); Mean Platelet Volume 7.1 fL (7.4-10.4); Platelet Count 362 10x3/uL (130-400); RBC Distribution Width 12.8 % (11.5-14.5); Red Blood Cell (RBC) Count 4.16 mill/uL (4.20-5.40); White Blood Cell (WBC) Count 7.8 10x3/uL (4.8-10.8)
[2022-11-03 22:43] LABS: ALT (SGPT) 14 U/L (8-55); AST (SGOT) 16 U/L (5-34); Alkaline Phosphatase 122 U/L (40-110); Anion Gap 15 mmol/L (10-20); BUN (Urea Nitrogen) 18 mg/dL (9.8-20.1); Bilirubin, Total 0.4 mg/dL (0.2-1.2); Calc. Creatinine Clearance 0 mL/min (70-130); Calcium 9.7 mg/dL (7.8-10.44); Carbon Dioxide 24 mmol/L (22-29); Chloride 106 mmol/L (98-107); Estimated GFR 58; Globulin 3.9 g/dL (2.4-3.5); Glucose 209 mg/dL (70-105); Protein, Total 7.9 g/dL (6.0-8.3); Sodium 141 mmol/L (136-145)
== END 2022-11-03 23:59 | disposition home or self-care (01) ==
LOC: ERS 21:38
DX: R07.89 Other chest pain (principal); M54.6 Pain in thoracic spine; E11.9 Type 2 diabetes mellitus without complications; I10 Essential (primary) hypertension; J45.909 Unspecified asthma, uncomplicated; E78.5 Hyperlipidemia, unspecified
CPT/HCPCS: 71045; 80053; 84484; 85025; 93005